=== PATIENT | female | born 1960 | race Caucasian/White ===

== ENCOUNTER 2018-09-08 20:17 | Inpatient (IN) | payer BC ==
[~2018-09-08] VITALS: Ht 152.4 cm; Wt 62.6 kg
--- NOTE | 2018-09-08 19:30 | NUR ---
SBAR RECEIVED FROM AMBULANCE EMT FROM [facility]. PATIENT ALERT AND ORIENTED X 4. NO C/O SOB OR PAIN AT THIS TIME. MOTHER, SON AND DAUGHTER WITH PATIENT IN ROOM. MOTHER REQUESTING TO STAY THE NIGHT WITH PATIENT SO THAT SHE CAN KEEP HER COMPANY. ORDERS RECEIVED AND IMPLEMENTED INTO SYSTEM. MEDICATION RECONCILIATION NOT DONE BECAUSE DISCHARGE MEDS FROM [facility] ARE NOT FINALIZED AND ARE LACKING DOSAGE. WILL CALL [facility] AND VERIFY MEDICATIONS. PATIENT IS FULL CODE WITH ALLERGY TO [facility]. PATIENT AMBULATORY AND USES A COMMODE FOR THE BATHROOM. PHOTOS TAKEN OF LUMBAR SURGICAL DRESSING AND BLISTER ON THE LEFT BUTTOCK. PATIENT ON RIGHT SIDE TO RELIEVE PACK FROM SURGERY. SIDE RAILS UP BILATERALLY FOR SAFETY. WILL CONTINUE TO MONITOR.
[2018-09-08 21:04] VITALS: BP 114/52
[2018-09-08] MEDS ORDERED: BISA-79 PO (21:53)
[2018-09-08] MEDS ORDERED: DOCU100C36 PO (21:53)
[2018-09-08] MEDS ORDERED: METH500T PO (21:53)
[2018-09-08] MEDS ORDERED: GABA-534 PO (21:53)
[2018-09-08] MEDS ORDERED: ACET-73 PO (21:53)
[2018-09-08] MEDS ORDERED: OXYC-128 PO (21:53)
[2018-09-08] MEDS ORDERED: OXYCODONE HCL 5 MG TABLET PO PRN (22:45)
[2018-09-08] MEDS ORDERED: BISACODYL 5 MG TABLET.DR PO SCH (23:30)
[2018-09-08] MEDS ORDERED: OXYCODONE/APAP 5-325 MG TABLET PO PRN (23:30)
[2018-09-09] MEDS: ACETAMINOPHEN ES 500 MG TABLET PO SCH ×4 (00:13→23:30)
[2018-09-09] MEDS: OXYCODONE/APAP 5-325 MG TABLET PO PRN ×3 (04:40→20:14)
[2018-09-09 05:12] VITALS: BP 108/54
--- NOTE | 2018-09-09 06:47 | NUR ---
No C/O of SOB or distress during shift. C/O of left leg and back pain this morning. Percocet given for break through pain. Patient requested 0730 Tylenol to be given after breakfast to prevent stomach ache. Current plan for pain management explained to patient. Verbalized understanding. Anxious to start PT today. Mother at bedside for comfort. Side rails up bilaterally for safety. Will endorse to oncoming shift accordingly.
[2018-09-09] MEDS ORDERED: BISACODYL 5 MG TABLET.DR PO PRN (07:13)
[2018-09-09 07:37] LABS: BASOPHILS # (AUTO) 0.1 K/uL (0.0-8.0); BASOPHILS % (AUTO) 0.8 % (0.0-2.0); EOSINOPHILS # (AUTO) 0.1 K/uL (0.0-0.7); EOSINOPHILS % (AUTO) 1.1 % (0.0-7.0); HEMATOCRIT 27.5 % (31.2-41.9); HEMOGLOBIN 9.3 g/dL (10.9-14.3); LYMPHOCYTES # (AUTO) 2.2 K/uL (20.0-40.0); LYMPHOCYTES % (AUTO) 25.3 % (20.5-51.5); MEAN CORPUSCULAR HEMOGLOBIN 29.2 uug (24.7-32.8); MEAN CORPUSCULAR HGB CONC 34 g/dL (32.3-35.6); MEAN CORPUSCULAR VOLUME 86.5 fL (75.5-95.3); MONOCYTES # (AUTO) 0.7 K/uL (2.0-10.0); NEUTROPHILS # (AUTO) 5.6 K/uL (1.8-8.9); NEUTROPHILS % (AUTO) 64.8 % (38.5-71.5); PLATELET COUNT (AUTO) 214 K/uL (179-408); RED BLOOD CELL COUNT(AUTO) 3.18 MIL/uL (3.63-4.92); WHITE BLOOD COUNT (AUTO) 8.6 K/uL (3.8-11.8)
[2018-09-09 07:46] LABS: CREATININE 0.6 mg/dL (0.6-1.3); MAGNESIUM 1.9 mg/dL (1.8-2.4); PHOSPHOROUS 3.6 mg/dL (2.5-4.9); POTASSIUM 3.6 mmol/L (3.5-5.1)
[2018-09-09 08:08] VITALS: BP 101/46
[2018-09-09] MEDS: DOCUSATE SODIUM 100 MG CAPSULE PO SCH ×2 (09:01→20:14)
[2018-09-09] MEDS: GABAPENTIN 300 MG CAPSULE PO SCH ×3 (09:02→17:54)
[2018-09-09] MEDS: METHOCARBAMOL 500 MG TABLET PO SCH ×3 (09:07→17:54)
[2018-09-09 13:38] LABS: IRON, SERUM 26 ug/dL (50-175)
[2018-09-09 20:00] VITALS: BP 113/61
--- NOTE | 2018-09-09 21:35 | NUR ---
Received pt resting in bed. AAO x4. Assisted to the bathroom using walker. No acute distress noted. C/o pain on the back and left leg 8/10, Percocet PRN and all other due med given as ordered. Dr. Kirkland seen pt. Safety measures maintained. Call light and personal belongings within reach. Will continue to monitor.
[2018-09-09] MEDS: OXYCODONE HCL 10 MG TAB.SR.12H PO SCH (22:04)
--- NOTE | 2018-09-10 00:26 | NUR ---
Routine Tylenol Es not given. Pt sleeping and she requested not to be waken up to take tylenol at this time. Continue to monitor.
[2018-09-10 04:00] VITALS: BP 113/51
[2018-09-10] MEDS: ACETAMINOPHEN ES 500 MG TABLET PO SCH ×3 (06:54→23:27)
[2018-09-10 08:00] VITALS: BP 109/49
[2018-09-10] MEDS: OXYCODONE HCL 10 MG TAB.SR.12H PO SCH (09:00)
[2018-09-10] MEDS: DOCUSATE SODIUM 100 MG CAPSULE PO SCH ×2 (09:19→21:34)
[2018-09-10] MEDS: GABAPENTIN 300 MG CAPSULE PO SCH ×3 (09:19→16:54)
[2018-09-10] MEDS: METHOCARBAMOL 500 MG TABLET PO SCH ×3 (09:19→16:54)
[2018-09-10] MEDS: OXYCODONE/APAP 5-325 MG TABLET PO PRN ×2 (09:20→21:34)
--- NOTE | 2018-09-10 10:06 | NUR ---
Received pt in bed. A/Ox4. Denies CP or SOB. Chandler nauseous, ice chips given and effective. All due medications given as ordered and tolerated well. Pt. refused Oxycontin 10 mg this AM, pt. stated "The new medication is making me feel nauseous". All needs attended and met. Safety measures maintained. Call light and all frequently used items in place. Will continue to monitor accordingly.
--- NOTE | 2018-09-10 11:20 | NUR ---
WOUND CARE CONSULT: PT PRESENTS WITH SURGICAL DRESSING TO LOWER BACK WHICH IS DRY AND INTACT AND LEFT BUTTOCK INTACT BLISTER, PRESENT ON ADMISSION. RECOMMENDATIONS MADE FOR INTACT BLISTER. DISCUSSED WITH NURSING STAFF. PT IS AMBULATORY AND CONTINENT. WILL SEE PRN. DEFER TO SURGEON FOR SURGICAL SITE. MD IN AGREEMENT WITH PLAN OF CARE. Addendum: 09/10/18 at 1121 by ORVILLE SINGER RN Amended: Links added.
[2018-09-10 16:00] VITALS: BP 106/58
[2018-09-10] MEDS: MAGNESIUM HYDROXIDE 30 ML LIQUID UDC PO PRN (18:59)
--- NOTE | 2018-09-10 19:33 | NUR ---
End of shift: All due medications administered as ordered and tolerated well. No new skin condition noted. Kept pt. clean and dry. Seen by Dr. Kirkland this shift. Call light and all frequently used items within pt. reach. Will endorse to oncoming shift accordingly.
--- NOTE | 2018-09-10 19:45 | NUR ---
Patient received in bed. AAO x4. Able to make needs known. No sign of acute distress or SOB was noted. On room air. Her sister at the bedside. Complained of low back pain rated 5/10. Patient assessed. Safety measures maintained. Fall prevention observed. Bed in low position, brake and alarm on, side rails up x2. Call light and personal belongings within reach. Will continue to monitor.
[2018-09-10 20:00] VITALS: BP 119/59
[2018-09-11] MEDS: OXYCODONE/APAP 5-325 MG TABLET PO PRN ×2 (01:31→22:53)
[2018-09-11 06:21] VITALS: BP 96/45
[2018-09-11] MEDS: ACETAMINOPHEN ES 500 MG TABLET PO SCH ×3 (07:37→22:53)
[2018-09-11] MEDS: DOCUSATE SODIUM 100 MG CAPSULE PO SCH ×2 (08:19→20:57)
[2018-09-11] MEDS: GABAPENTIN 300 MG CAPSULE PO SCH ×3 (08:19→16:42)
[2018-09-11] MEDS: METHOCARBAMOL 500 MG TABLET PO SCH ×4 (08:19→20:58)
[2018-09-11 09:15] VITALS: BP 112/61
--- NOTE | 2018-09-11 09:36 | NUR ---
Received pt in bed. A/Ox4 able to make her needs known. Denies CP or SOB. All due medications given as ordered and tolerated well. No N/V episode this AM. All needs attended and met. Safety measures maintained. Call light and all frequently used items in place. Will continue to monitor accordingly.
[2018-09-11] MEDS: MAGNESIUM HYDROXIDE 30 ML LIQUID UDC PO PRN (11:52)
--- NOTE | 2018-09-11 12:27 | NUR ---
INTERDISCIPLINARY TEAM CONFERENCE
[2018-09-11 16:46] VITALS: BP 112/59
--- NOTE | 2018-09-11 17:11 | NUR ---
Obtained dulcolax supp and fleet enema order from Dr. Kirkland for constipation. amenable with orders. All orders noted and carried out. Pt. made aware.
[2018-09-11] MEDS ORDERED: BISACODYL 10 MG SUPP.RECT RC PRN (17:15)
[2018-09-11] MEDS ORDERED: FLEET ENEMA 133 ML BOTTLE RC PRN (17:15)
--- NOTE | 2018-09-11 18:50 | NUR ---
End of shift: All due medications administered as ordered and tolerated well. No new skin condition noted. Kept pt. clean and dry. Call light and all frequently used items within pt. reach. Will endorse to oncoming shift accordingly.
[2018-09-11 19:50] VITALS: BP 113/57
--- NOTE | 2018-09-11 20:31 | NUR ---
Received pt in bed, appearing to be asleep but easily arousable to verbal stimuli and light touch. No acute distress noted. Verbally responsive and able to make needs known. Denies pain or discomfort at this time. All safety measures and fall precautions maintained. Call light and all personal belongings within reach. Sister at bedside and stated she will stay overnight. Will continue to monitor.
[2018-09-12] MEDS: OXYCODONE/APAP 5-325 MG TABLET PO PRN ×2 (04:28→20:18)
[2018-09-12 04:40] VITALS: BP 111/51
[2018-09-12] MEDS: ACETAMINOPHEN ES 500 MG TABLET PO SCH ×3 (07:18→23:36)
[2018-09-12 07:45] VITALS: BP 105/62
[2018-09-12] MEDS: DOCUSATE SODIUM 100 MG CAPSULE PO SCH ×2 (08:12→20:14)
[2018-09-12] MEDS: GABAPENTIN 300 MG CAPSULE PO SCH ×2 (08:12→12:50)
[2018-09-12] MEDS: METHOCARBAMOL 500 MG TABLET PO SCH ×4 (08:24→20:14)
--- NOTE | 2018-09-12 08:43 | NUR ---
Received pt in bed. A/OX4 able to make her needs known. Denies CP or SOB. All due medications given as ordered and tolerated well. Kept pt. clean and dry. All needs attended and met. Safety measures maintained. Call light and all frequently used items in place. Will continue to monitor accordingly.
--- NOTE | 2018-09-12 13:43 | NUR ---
INTERDISCIPLINARY TEAM CONFERENCE
[2018-09-12 16:42] VITALS: BP 120/62
[2018-09-12] MEDS: GABAPENTIN 400 MG CAPSULE PO SCH (17:31)
--- NOTE | 2018-09-12 18:21 | NUR ---
End of shift: All due medications administered as ordered and tolerated well. No new skin condition noted. Seen and evaluated by Dr. Kirkland today. Per Dr. Kirkland, leave Lt. buttock blister CAN DRAGGER. Kept pt. clean and dry. Call light and all frequently used items within pt. reach. Will endorse to oncoming shift accordingly.
--- NOTE | 2018-09-12 18:22 | NUR ---
Pt with appt. with Dr. Esteban Douglass (Ortho) #[phone] on 09/19/2018 @ 0900 per CM. Pt. made aware and amenable.
[2018-09-12 19:50] VITALS: BP 99/47
--- NOTE | 2018-09-12 20:35 | NUR ---
Received pt resting in bed. AAO x4. Family at bedside. No acute distress noted. C/o pain 8/10 on the back and left leg, mostly on the upper part of the leg. Assessed for s/s of DVT, no redness, no warmth, no swelling/ tenderness, no discoloration noted. All due meds and Percocet PRN given as ordered. BP 99/47, asymptomatic. Pt stated that her BP is usually on the low side. Will keep monitoring. Safety measures maintained. Call light and personal belongings within reach. Will continue to monitor.
[2018-09-12 23:47] VITALS: BP 108/48
[2018-09-13 04:00] VITALS: BP 118/62
[2018-09-13] MEDS: OXYCODONE/APAP 5-325 MG TABLET PO PRN ×3 (04:37→20:18)
[2018-09-13] MEDS: ACETAMINOPHEN ES 500 MG TABLET PO SCH (06:39)
[2018-09-13] MEDS: DOCUSATE SODIUM 100 MG CAPSULE PO SCH ×2 (08:33→20:17)
[2018-09-13] MEDS: GABAPENTIN 400 MG CAPSULE PO SCH ×3 (08:33→16:39)
[2018-09-13] MEDS: METHOCARBAMOL 500 MG TABLET PO SCH ×4 (08:33→20:17)
--- NOTE | 2018-09-13 14:59 | NUR ---
Patient complaint of back pain. Continue on pain management percocet 5-325mg given with good effect. not in distress. COntinue therapy for ambulation, ADL, and transfer ability. will continue monitor
--- NOTE | 2018-09-13 18:34 | NUR ---
Patient complaint of itchiness after eating brought by the family. Scratching and slight swelling on the right hand. MD Keys notified. will continue monitor
[2018-09-13] MEDS ORDERED: predniSONE 20 MG TABLET PO ONE (18:45)
[2018-09-13] MEDS: diphenhydrAMINE 25 MG CAP PO PRN (18:55)
[2018-09-13 19:18] VITALS: BP 104/55
[2018-09-13 19:20] VITALS: BP 122/56
--- NOTE | 2018-09-13 19:20 | NUR ---
Alert and oriented x 4. No SOB or distress noted at this time. Right hand assessed for sign of allergic reaction. Redness noted, with minimal swelling. Will continue to monitor. Patient resting sitting in wheelchair with mother at bedside. Mother will be staying in patient room tonight. Pain noted in left leg and back. Will medicate for pain management. Safety measures maintained. Call light and personal belongings within reach. Will continue to monitor.
[2018-09-14 05:01] VITALS: BP 104/49
--- NOTE | 2018-09-14 06:42 | NUR ---
Patient slept well during shift. 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 Right hand assessed this morning with minimal redness seen. Left sided blister assessed -blister intact with . All due medications given-tolerated well. Call light and frequently used items within reach. Will continue to monitor. Addendum: 09/14/18 at 0658 by JALEN FRANKS RN Left sided blister assessed - blister head intact with pink tissue underneath.
[2018-09-14 08:08] VITALS: BP 125/64
[2018-09-14] MEDS: GABAPENTIN 400 MG CAPSULE PO SCH ×3 (08:08→16:42)
[2018-09-14] MEDS: MAGNESIUM HYDROXIDE 30 ML LIQUID UDC PO PRN (08:08)
[2018-09-14] MEDS: METHOCARBAMOL 500 MG TABLET PO SCH ×4 (08:08→20:20)
[2018-09-14] MEDS: DOCUSATE SODIUM 100 MG CAPSULE PO SCH ×2 (08:08→20:20)
--- NOTE | 2018-09-14 08:28 | NUR ---
Received pt in bed. A/OX4 able to make her needs known. Denies CP or SOB. All due medications given as ordered and tolerated well. Kept pt. clean and dry. No c/o itching or redness on RT. hand. Denies pain or discomfort at this time. All needs attended and met. Safety measures maintained. Call light and all frequently used items in place. Will continue to monitor accordingly.
[2018-09-14 16:18] VITALS: BP 111/58
[2018-09-14] MEDS: ACETAMINOPHEN ES 500 MG TABLET PO PRN (18:26)
--- NOTE | 2018-09-14 18:40 | NUR ---
End of shift: All due medications administered as ordered and tolerated well. No new skin condition noted. Pt. showered today. Lower back surgical incision dressing remain C/D/O. Lt. buttock blister KOKO. Kept pt. clean and dry. Call light and all frequently used items within pt. reach. Will endorse to oncoming shift accordingly.
[2018-09-14 19:20] VITALS: BP 132/59
--- NOTE | 2018-09-14 19:25 | NUR ---
Patient received in bed resting. Alert and oriented x 4. No SOB or distress noted at this time. Pain noted in left leg and back. Will medicate for pain management. Safety measures maintained. Call light and personal belongings within reach. Will continue to monitor.
[2018-09-14] MEDS: OXYCODONE/APAP 5-325 MG TABLET PO PRN (20:20)
[2018-09-15] MEDS: OXYCODONE/APAP 5-325 MG TABLET PO PRN ×2 (02:36→21:29)
[2018-09-15] MEDS: ACETAMINOPHEN ES 500 MG TABLET PO PRN (05:13)
[2018-09-15 05:19] VITALS: BP 96/58
--- NOTE | 2018-09-15 06:47 | NUR ---
Patient slept well during shift. No C/O itchiness or SOB during shift boss. Left sided blister assessed -blister intact and clean. All due medications given-tolerated well. C/O of left sided leg pain all night, despite pain medication given. Call light and frequently used items within reach. Will endorse to oncoming accordingly.
[2018-09-15 08:00] VITALS: BP 103/60
[2018-09-15] MEDS: METHOCARBAMOL 500 MG TABLET PO SCH ×4 (08:23→21:28)
[2018-09-15] MEDS: DOCUSATE SODIUM 100 MG CAPSULE PO SCH ×2 (08:23→21:27)
[2018-09-15] MEDS: GABAPENTIN 400 MG CAPSULE PO SCH ×3 (08:23→16:38)
--- NOTE | 2018-09-15 09:10 | NUR ---
Received pt in bed. A/OX4 able to make her needs known. Denies CP or SOB. All due medications given as ordered and tolerated well. Kept pt. clean and dry. Pt with new c/o RT. eye itching, offered PRN benadryl but declined will monitor accordingly. Denies pain or discomfort at this time. All needs attended and met. Safety measures maintained. Call light and all frequently used items in place. Will continue to monitor accordingly.
[2018-09-15] MEDS: MAGNESIUM HYDROXIDE 30 ML LIQUID UDC PO PRN (09:58)
--- NOTE | 2018-09-15 10:20 | NUR ---
Received order from Dr. Keys for Juliet 60 mg PO QD for allergy symptoms. Orders noted and carried out. Pt. made aware of changes.
[2018-09-15] MEDS: FEXOFENADINE HCL 60 MG TABLET PO SCH (10:40)
--- NOTE | 2018-09-15 10:40 | NUR ---
Obtained XR Lumbar spine order from Dr. Kirkland for upcoming f/u appt with ortho. Order received from and carried out accordingly. Pt. made aware.
--- NOTE | 2018-09-15 15:29 | NUR ---
Received discharge order from Dr. Kirkland. Pt. scheduled to discharge home on 09/16/18 with home health to provide PT/OT/RN services. Ortho f/u with Dr. Douglass on 09/19/18 @ 0900. Orders noted and carried out. Pt. made aware and verbalized clear understanding with no new concerns.
[2018-09-15 17:05] VITALS: BP 99/52
--- NOTE | 2018-09-15 18:24 | NUR ---
End of shift: All due medications administered as ordered and tolerated well. No new skin condition noted. Lower back surgical incision dressing remain C/D/I. 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 Seen by Dr. Kirkland today with RX for Percocet placed in chart. Kept pt. clean and dry. Call light and all frequently used items within pt. reach. Will endorse to oncoming shift accordingly.
[2018-09-15 20:34] VITALS: BP 99/53
[2018-09-16] MEDS: diphenhydrAMINE 25 MG CAP PO PRN (01:01)
[2018-09-16 05:05] VITALS: BP 112/62
--- NOTE | 2018-09-16 05:19 | NUR ---
slept most of the shift. needs attended. ambulates to the BR. voiding well. Pain meds given as needed. tolerated po meds well. possible discharge today.
[2018-09-16] MEDS: GABAPENTIN 400 MG CAPSULE PO SCH ×2 (08:20→12:20)
[2018-09-16] MEDS: DOCUSATE SODIUM 100 MG CAPSULE PO SCH (08:20)
[2018-09-16] MEDS: METHOCARBAMOL 500 MG TABLET PO SCH ×2 (08:20→12:20)
[2018-09-16] MEDS: FEXOFENADINE HCL 60 MG TABLET PO SCH (08:26)
[2018-09-16 09:46] VITALS: BP 125/57
--- NOTE | 2018-09-16 11:10 | NUR ---
Received pt in bed. A/OX4 able to make her needs known. Denies CP or SOB. All due medications given as ordered and tolerated well. Pt. schedule to discharge today with grape picker time of 1430. Kept pt. clean and dry. XR lumbar spine completed this AM, awaiting for CD to d/c with pt. Denies pain or discomfort at this time. All needs attended and met. Safety measures maintained. Call light and all frequently used items in place. Will continue to monitor accordingly.
--- NOTE | 2018-09-16 15:20 | NUR ---
Discharge note: Routine round with pt. remained cooperative, A/OX4 with capacity to make decision. Lungs sounds clear to auscultation bilaterally, no respiratory distress. Heart with regular rate and rhythm, no murmur, rub or gallop. Abdomen soft, non-tender, bowel sounds present in all 4 quadrants with medium BM this AM. Conjunctivae clear, PERRL. Skin care rendered. Lumbar area assessed and dressing remain C/D/I, pictures taken and placed in chart. Pt. served with lunch as ordered and tolerated well. All belongings are prepared. Lumbar XR placed in pt. packet. Inventory done all belongings accountable for. Instructed resident to follow up with PCP upon discharge. Pt. with appointment with Dr. Douglass on 09/19/18 @ 0900. Pt. teaching provided which include but not limited to meds administration, risk of fall, and skin mgt. No further questions from the pt. about the discharge instructions at this time and verbalized clear understanding. Discharge papers signed by pt. [address] on-site, provided report to receiving staff with no further questions. Pt. left via gurney at 1520 d/c to home with home health to provide PT/OT/RN. made aware of pt. Addendum: 09/16/18 at 1535 by RONNIE PUTNAM RN *Lumbar XR CD placed in pt. discharge packet. * made aware of pt. discharge.
== END 2018-09-16 15:20 | disposition home health service (06) | DRG 560 ==
PROVIDERS: ADMIT Physical Medicine & Rehabilitation Pain Medicine; ATTEND Physical Medicine & Rehabilitation Pain Medicine
DX: Z47.89 Encounter for other orthopedic aftercare (principal); D68.59 Other primary thrombophilia; E46 Unspecified protein-calorie malnutrition; M51.16 Intervertebral disc disorders with radiculopathy, lumbar region; Z98.1 Arthrodesis status; M48.061 Spinal stenosis, lumbar region without neurogenic claudication; M43.16 Spondylolisthesis, lumbar region; M47.26 Other spondylosis with radiculopathy, lumbar region; R26.9 Unspecified abnormalities of gait and mobility; Z90.49 Acquired absence of other specified parts of digestive tract; R53.1 Weakness; D50.9 Iron deficiency anemia, unspecified; G89.4 Chronic pain syndrome; K59.00 Constipation, unspecified; Z88.6 Allergy status to analgesic agent
CPT/HCPCS: 36415; 72110; 83550; 83735; 84100; 85025; 92523; 92526; 92610; 97110; 97112; 97116; 97165; 97530; 97535; A4663; A9150; J7512; Q0163